=== PATIENT | female | born 1980 | race Caucasian/White ===

== ENCOUNTER 2022-11-20 12:59 | Emergency (ER) | payer BC, SELFPAY ==
[2022-11-20 13:13] VITALS: BP 121/76; PULSE 75; RESP 16; TEMP 36.7; O2SAT 100
--- NOTE | 2022-11-20 13:13 | ED.FEMALEGU ---
HPI - Female Genitourinary General Chief complaint: Urogenital-Female Stated complaint: Unknown Time Seen by Provider: 11/20/22 13:13 Source: patient, RN notes reviewed and old records reviewed Mode of arrival: ambulatory Limitations: no limitations History of Present Illness HPI Narrative: 42-year-old female presents to the [facility] with complaints of burning urgency frequency. Had symptoms a couple weeks ago, took cranberry pills and drank a lot a water, it got better. He returned yesterday with increased burning, frequency, urgency, lower abdominal discomfort. Denies any fevers, nausea, vomiting or diarrhea. No CVA tenderness Related Data Home Medications Medication Instructions Recorded Confirmed aspirin 81 mg tablet 81 mg PO DAILY 11/20/22 11/20/22 atorvastatin 10 mg tablet 10 mg PO DAILY 11/20/22 11/20/22 diltiazem HCl 180 mg 180 mg PO DAILY 11/20/22 11/20/22 capsule,extended release 24 hr, controlled (DILT-XR) nitroglycerin 0.3 mg sublingual 0.3 mg sublingual Q5-15M PRN Chest 11/20/22 11/20/22 tablet Pain ranolazine 500 mg tablet,extended 500 mg PO DAILY 11/20/22 11/20/22 release,12 hr sumatriptan succinate 100 mg tablet 100 mg PO PRN PRN Migraine Headache 11/20/22 11/20/22 Allergies Allergy/AdvReac Type Severity Reaction Status Date / Time No Known Allergies Allergy Verified 11/20/22 13:14 Review of Systems Review of Systems: All systems reviewed & are unremarkable except as noted in HPI and below Constitutional: Constitutional: Reports no additional constitutional complaints Eyes: Eyes: Reports no additional eye complaints ENT: Reports system reviewed and no additional complaints, except as documented Cardiovascular: Cardiovascular: Reports no additional cardiovascular complaints, Denies chest pain and Denies dyspnea Respiratory: Respiratory: Reports no additional respiratory complaints, Denies chest congestion, Denies cough and Denies dyspnea Gastrointestinal: Gastrointestinal: Reports no additional gastrointestinal complaints, Denies abdominal pain, Denies nausea and Denies vomiting Genitourinary: Genitourinary: Reports as per HPI Musculoskeletal: Musculoskeletal: Reports no additional musculoskeletal complaints Integumentary/Breasts: Skin/Breast: Reports system reviewed and no additional complaints, except as docu Neurologic: Reports system reviewed and no additional complaints, except as documented Psychiatric: Psychiatric: Reports no additional psychiatric complaints Allergic/Immunologic: Allergic/Immunologic: Reports no additional allergic/immunologic complaints [facility] Past Medical History Medical History High cholesterol History of high blood pressure Migraine Surgical History Surgical History H/O: hysterectomy Comments At the time of my signature, I reviewed and agree with the nursing past medical, surgical, social, and family history. There is no relevant family history pertinent to the patient complaint. Exam Const: General: cooperative, healthy appearing, comfortable, no acute distress, well developed, alert and well nourished Nutritional Appearance: well nourished and obese Orientation/consciousness: patient oriented x3 Limitations: no limitations HENMT: Head: normal to inspection Ears: hearing grossly normal bilaterally and external ears normal Face/Nose/Sinus: Normal external nose present, Normal nares present, Normal nasal mucous membranes and turbinates present and normal facial exam Face and sinus: normal facial exam Throat: posterior oropharynx normal Eyes: General: appearance normal, both eyes and all related structures Alignment and Position: alignment normal Periorbital: periorbital findings normal Pupils: Equal, round and reactive pupils present EOM: EOMs intact bilaterally Neck: Neck: normal visual inspection, full ROM, no lymphadenopat
[2022-11-20 13:14] VITALS: BP 121/76; PULSE 75; RESP 16; TEMP 36.7; O2SAT 100
== END 2022-11-20 13:35 | disposition home or self-care (01) ==
PROVIDERS: Emergency Provider Nurse Practitioner
DX: R30.0 Dysuria (principal); E78.00 Pure hypercholesterolemia, unspecified; I10 Essential (primary) hypertension; Z79.82 Long term (current) use of aspirin
CPT/HCPCS: 81003; 87077; 87086; 87186; 99203; G0463